=== PATIENT | male | born 1995 | race Caucasian/White ===

== ENCOUNTER 2017-10-20 23:45 | Emergency (ER) | payer SELFPAY ==
[2017-10-21] MEDS ORDERED: Ibuprofen 800 MG TAB ONE (00:51)
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
== END 2017-10-21 00:58 | disposition home or self-care (01) ==
LOC: EDBD 23:45 → ERS 23:45
DX: S09.90XA Unspecified injury of head, initial encounter; F10.129 Alcohol abuse with intoxication, unspecified; Y00.XXXA Assault by blunt object, initial encounter
CPT/HCPCS: 70450; 72125; G0390